=== PATIENT | female | born 1950 | race Two or more races ===

== ENCOUNTER 2019-12-09 07:39 | Emergency (ER) | payer MEDICARE ==
[2019-12-09] MEDS: Nitroglycerin 0.4 MG Tab.SL SL ONE ×2 (07:44→07:54)
[2019-12-09] MEDS: Aspirin 81 MG Tab.Chew PO ONE (07:53)
[2019-12-09] MEDS: Sodium Chloride 0.9% 1,000 ML IV SCH (08:00)
[2019-12-09] MEDS: LORazepam 2 MG/ML SDV IVPUSH ONE (08:02)
--- NOTE | 2019-12-09 08:40 | EDM.PDOC ---
ED HPI GENERAL MEDICAL PROBLEM - General Chief Complaint: Chest Pain Stated Complaint: CHEST PAIN Time Seen by Provider: 12/09/19 07:45 Source of Information: Reports: Patient History Limitations: Reports: No Limitations - History of Present Illness INITIAL COMMENTS - FREE TEXT/NARRATIVE: This patient presents to the ED for evaluation of chest pain. She states that she was sitting in her chair watching the news this morning at 0630 when she developed a sharp pain in her back and chest. She states the pain is the worst that she has had and has not changed in intensity. On arrival she rates the pain at 10/10 and continues primary in her left anterior chest and some in her back. It does not radiate up her neck or down her arms. She felt a bit short of breath but denies any nausea, vomiting, or diarrhea. She denies recent illness including fever, cough, sore throat. She does take HCTZ for "swelling in my ankles" but denies any health problems. Patient is a heavy smoker at 1.5 packs per day. Onset: Today, Sudden Onset Date: 12/09/19 Onset Time: 06:30 Duration: Heavy Location: Reports: Chest Quality: Reports: Stabbing Severity: Severe Improves with: Reports: None Worsens with: Reports: None Associated Symptoms: Reports: No Other Symptoms - Related Data Allergies Allergy/AdvReac Type Severity Reaction Status Date / Time No Known Allergies Allergy Verified 12/09/19 08:30 Home Meds: Home Meds Hydrochlorothiazide 25 mg PO DAILY 10/20/14 [History] Past Medical History Musculoskeletal History: Reports: Arthritis - Past Surgical History Musculoskeletal Surgical History: Reports: Shoulder Surgery Other Musculoskeletal Surgeries/Procedures:: Right RTC repair 11/2016 ED ROS GENERAL - Review of Systems Review Of Systems: See Below Constitutional: Denies: Fever, Malaise, Weakness, Fatigue HEENT: Denies: Ear Pain, Eye Pain, Throat Pain Respiratory: Reports: Shortness of Breath. Denies: Cough, Sputum Cardiovascular: Reports: Chest Pain, Blood Pressure Problem, Dyspnea on Exertion. Denies: Edema, Palpitations GI/Abdominal: Denies: Abdominal Pain, Diarrhea, Nausea, Vomiting Musculoskeletal: Reports: No Symptoms Skin: Reports: No Symptoms Neurological: Reports: No Symptoms ED EXAM, GENERAL - Physical Exam Exam: See Below Exam Limited By: No Limitations General Appearance: Alert, WD/WN, Anxious, Moderate Distress Eye Exam: Bilateral Eye: PERRL Ears: Normal External Exam Nose: Normal Inspection Throat/Mouth: Normal Inspection Head: Atraumatic, Normocephalic Neck: Normal Inspection, Supple, Non-Tender, Full Range of Motion Respiratory/Chest: No Respiratory Distress, Lungs Clear, Normal Breath Sounds Cardiovascular: Normal Peripheral Pulses, Regular Rate, Rhythm Extremities: Normal Inspection Neurological: Alert, Oriented Course - Vital Signs Last Recorded V/S: Last Vital Signs Temp 36.9 C 12/09/19 07:43 Pulse 50 L 12/09/19 10:42 Resp 20 12/09/19 10:42 BP 129/60 12/09/19 10:42 Pulse Ox 94 L 12/09/19 08:17 - Orders/Labs/Meds Orders: Active Orders 24 hr Category Date Time Status EKG Documentation Completion [RC] ASDIRECTED Care 12/09/19 07:54 Active EKG Documentation Completion [RC] ASDIRECTED Care 12/09/19 10:27 Active Chest w Cont [CT] Stat Exams 12/09/19 08:23 Taken Iodixanol [Visipaque 320] Med 12/09/19 08:44 Active 100 ml IV . DIRECTED PRN Sodium Chloride 0.9% [Normal Saline] Med 12/09/19 08:45 Active 50 ml FLUSH ONETIME Sodium Chloride 0.9% [Normal Saline] 1,000 ml Med 12/09/19 08:10 Active IV ASDIRECTED Medication Orders Sodium Chloride (Normal Saline) 1,000 mls @ 0 mls/hr IV ASDIRECTED ALLEN Last Admin: 12/09/19 08:00 Dose: 30 mls/hr Iodixanol (Visipaque 320) 100 ml IV . DIRECTED PRN PRN Reason: RADIOLOGY EXAM Stop: 12/10/19 08:45 Sodium Chloride (Normal Saline) 50 ml FLUSH ONETIME [facility] Labs: Laboratory Tests 12/09/19 12/09/19 12/09/19 Range/Units 07:54 07:54 10:45 WBC 7.1 (4.0-11.0) K/uL RBC 4.71 (3.80-5.80) M/uL Hgb 13.2 (11.5-16.5) g/dL Hct 40.9 (37.0-47.0) % MCV 87 (76-96) fL MCH 28.0 (27.0-32.0) pg MCHC 32.3 (31.0-35.0) g/dL RDW 15.8 (11.0-16.0) % Plt Count 250 (150-500) K/uL MPV 9.2 (6.0-10.0) fL Neut % (Auto) 55.6 (45.0-70.0) % Lymph % (Auto) 30.1 (20.0-40.0) % [place] % (Auto) 12.6 H (3.0-10.0) % Eos % (Auto) 1.4 (1.0-5.0) % Baso % (Auto) 0.3 (0.0-0.5) % Neut # (Auto) 3.93 (2.00-7.50) K/uL Lymph # (Auto) 2.13 (1.50-4.00) K/uL [place] # (Auto) 0.89 H (0.20-0.80) K/uL Eos # (Auto) 0.10 (0.04-0.40) K/uL Baso # (Auto) 0.02 (0.02-0.10) K/uL Sodium 139 (136-145) mmol/L Potassium 3.5 (3.5-5.1) mmol/L Chloride 101 (98-107) mmol/L Carbon Dioxide 27.8 (21.0-32.0) mmol/L Anion Gap 13.7 (5.0-15.0) mmol/L BUN 23 (8-26) mg/dL Creatinine 0.78 (0.55-1.02) mg/dL Est Cr Clr Drug Dosing TNP Estimated GFR (MDRD) > 60 (>60) MLS/MIN BUN/Creatinine Ratio 29.5 H (6-25) Glucose 84 (74-100) mg/dL Calcium 9.1 (8.5-10.1) mg/dL Troponin I < 0.017 < 0.017 (0.000-0.060) ng/mL Meds: Medications Generic Name Dose Route Start Last Admin Trade Name Freq PRN Reason Stop Dose Admin Sodium Chloride 1,000 mls @ 0 mls/hr 12/09/19 08:10 12/09/19 08:00 Normal Saline IV 30 mls/hr ASDIRECTED ALLEN Administration KVO Iodixanol 100 ml 12/09/19 08:44 Visipaque 320 IV 12/10/19 08:45 . DIRECTED PRN RADIOLOGY EXAM Sodium Chloride 50 ml 12/09/19 08:45 Normal Saline FLUSH ONETIME ALLEN Discontinued Medications Generic Name Dose Route Start Last Admin Trade Name Jenni PRN Reason Stop Dose Admin Aspirin 324 mg 12/09/19 07:56 12/09/19 07:53 Aspirin PO 12/09/19 07:57 324 mg ONETIME ONE Administration Lorazepam 1 mg 12/09/19 07:55 12/09/19 08:02 Ativan IVPUSH 12/09/19 07:56 1 mg ONETIME ONE Administration Nitroglycerin 0.4 mg 12/09/19 07:44 12/09/19 07:44 Nitrostat SL 12/09/19 07:45 0.4 mg ONETIME ONE Administration Nitroglycerin 0.4 mg 12/09/19 07:56 12/09/19 07:54 Nitrostat SL 12/09/19 07:57 0.4 mg ONETIME ONE Administration - Re-Assessments/Exams Free Text/Narrative Re-Assessment/Exam: 12/09/19 13:13 This patient presents to the ED for evaluation of chest pain. Initial laboratory and imaging tests have come back normal without progression of symptoms or other new concerning symptoms. There is no clinical, laboratory, or radiographic evidence of pulmonary embolism, aortic dissection, pneumonia, pneumothorax or cardiac ischemia. Other etiologies of chest pain could include chest wall source, esophageal spasm or GI source, pleuritis, referred pain, etc. I have no suspicion of angina at this point and would not admit at this time. She was completely pain free after interventions in the ED and repeat troponin and EKG were negative. I will set the patient up for an outpatient stress echocardiogram as soon as possible. She was instructed to return immediately to the ED should the pain recur; she was also reminded to use 911 as needed. The patient agrees with the plan and all questions were answered. Departure - Departure Time of Disposition: 12:00 Disposition: Home, Self-Care 01 Condition: Good Clinical Impression: Chest pain Instructions: Nonspecific Chest Pain, Adult Referrals: PCP,None [Primary Care Provider] - Forms: ED Department Discharge Sepsis Event Note - Focused Exam Vital Signs: Vital Signs Temp Pulse Resp BP BP Pulse Ox 12/09/19 10:42 50 L 20 129/60 12/09/19 08:17 72 18 150/69 H 94 L 12/09/19 08:05 60 20 144/62 H 97 12/09/19 07:58 63 20 151/74 H 97 12/09/19 07:54 144/116 H 12/09/19 07:51 93 20 144/116 H 97 12/09/19 07:44 194/95 H 12/09/19 07:43 36.9 C 86 20 194/95 H 99 12/09/19 07:40 36.1 C 84 20 194/95 H 100 Date Exam was Performed: 12/09/19 Time Exam was Performed: 13:13 - My Orders Last 24 Hours: My Active Orders 12/09/19 07:54 EKG Documentation Completion [RC] ASDIRECTED 12/09/19 08:10 Sodium Chloride 0.9% [Normal Saline] 1,000 ml IV ASDIRECTED 12/09/19 08:23 Chest w Cont [CT] Stat 12/09/19 08:44 Iodixanol [Visipaque 320] 100 ml IV . DIRECTED PRN 12/09/19 08:45 Sodium Chloride 0.9% [Normal Saline] 50 ml FLUSH ONETIME 12/09/19 10:27 EKG Documentation Completion [RC] ASDIRECTED - Assessment/Plan Last 24 Hours: My Active Orders 12/09/19 07:54 EKG Documentation Completion [RC] ASDIRECTED 12/09/19 08:10 Sodium Chloride 0.9% [Normal Saline] 1,000 ml IV ASDIRECTED 12/09/19 08:23 Chest w Cont [CT] Stat 12/09/19 08:44 Iodixanol [Visipaque 320] 100 ml IV . DIRECTED PRN 12/09/19 08:45 Sodium Chloride 0.9% [Normal Saline] 50 ml FLUSH ONETIME 12/09/19 10:27 EKG Documentation Completion [RC] ASDIRECTED
[2019-12-09] MEDS ORDERED: Iodixanol 652 MG/ML 100 ML Bottle IV PRN (08:44)
[2019-12-09] MEDS ORDERED: Sodium Chloride 0.9% 50 ML SDV FLUSH SCH (08:45)
[2019-12-09 10:43] VITALS: BP 129/60; PULSE 50
--- NOTE | 2019-12-11 10:39 | CT ---
DATE OF SERVICE: 12/09/19 CLINICAL DATA: chest and back pain ENHANCED CHEST CT: Multislice acquisition through the chest with IV contrast was performed. No priors. No evidence of PE. No pneumothorax. No pleural effusion. No aortic aneurysm or dissection. There are mild emphysematous changes throughout both lungs. There are linear densities in both lung bases consistent with linear atelectasis or fibrosis. There is a 4 mm calcified nodule in the right lung base consistent with a calcified granuloma from prior granulomatous disease. The lungs are otherwise clear. The heart size is normal. No significant pericardial effusion. No hilar or mediastinal adenopathy. There is a 1.9 cm sharply transcribed fluid density lesion in the left lobe of the liver consistent with a benign hepatic cyst. There is another sharply transcribed fluid density lesion in the right lobe of the liver adjacent to the gallbladder fossa consistent with benign cyst. There is some reflux of the contrast into the right hepatic vein suggesting the possibility of right heart failure. There is gas within the cervical esophagus. This is most likely related to GE reflux. There is a small sclerotic focus within the left 10th rib laterally. This is probably a bone island. No other significant findings. [id number] [facility]
== END 2019-12-09 12:00 | disposition home or self-care (01) ==
LOC: LB.ED 07:39
DX: R07.9 Chest pain, unspecified (principal); R07.89 Other chest pain; Z79.899 Other long term (current) drug therapy
CPT/HCPCS: 36415; 71260; 80048; 84484; 85025; 93005; 99284; A9270-GY; J2060; J7030

== ENCOUNTER 2022-05-16 10:36 | Observation (INO) | payer MEDICARE ==
[2022-05-16 11:41] LABS: ESTIMATED GFR 46 mL/min (>60)
[2022-05-16] MEDS ORDERED: Haloperidol Lactate 5 MG/ML SDV IVPUSH ONE ×2 (11:53→12:39)
[2022-05-16] MEDS ORDERED: Potassium Chloride Riders 10 MEQ in Premix Bag 1 BAG IV ONE ×6 (11:55→22:23)
[2022-05-16] MEDS ORDERED: Haloperidol Lactate 5 MG/ML SDV ONE (12:04)
[2022-05-16] MEDS ORDERED: Potassium Chloride Riders 50 ML ONE ×3 (12:25→16:53)
[2022-05-16] MEDS ORDERED: Sodium Chloride 0.9% 1,000 ML IV SCH (12:45)
[2022-05-17] MEDS ORDERED: Acetaminophen 325 MG Tab PO ONE (05:28)
[2022-05-17] MEDS ORDERED: Acetaminophen 325 MG Tab ONE (05:30)
[2022-05-17] MEDS ORDERED: Non-Formulary Medication 1 Each (Cyanocobalamin (Vitamin B-12) [Vitamin B-12] 1,000 MCG Ta SL SCH (08:00)
[2022-05-17] MEDS: Montelukast 10 MG Tab PO SCH (08:21)
[2022-05-17] MEDS: Calcium Carbonate/Vitamin D3 1500 MG-400 Units Tab PO SCH (08:22)
[2022-05-17] MEDS: Hydrochlorothiazide 25 MG Tab PO SCH (08:22)
[2022-05-17] MEDS ORDERED: Potassium Chloride Riders 10 MEQ in Premix Bag 1 BAG IV ONE ×6 (08:46→14:59)
[2022-05-17] MEDS: Enoxaparin 30 MG/0.3 ML Syringe SUBCUT SCH (10:08)
[2022-05-17] MEDS: Multivitamins with Iron/Calcium/Folic Acid/Minerals Tab PO SCH (10:09)
[2022-05-17] MEDS ORDERED: Haloperidol Lactate 5 MG/ML SDV IVPUSH ONE ×3 (12:16→14:59)
[2022-05-17] MEDS ORDERED: LORazepam 2 MG/ML SDV ONE (17:48)
[2022-05-17] MEDS ORDERED: LORazepam 2 MG/ML SDV IVPUSH ONE (17:56)
[2022-05-18] MEDS: Multivitamins with Iron/Calcium/Folic Acid/Minerals Tab PO SCH (08:07)
[2022-05-18] MEDS: Hydrochlorothiazide 25 MG Tab PO SCH (08:07)
[2022-05-18] MEDS: Montelukast 10 MG Tab PO SCH (08:07)
[2022-05-18] MEDS: Calcium Carbonate/Vitamin D3 1500 MG-400 Units Tab PO SCH (08:07)
[2022-05-18] MEDS: Haloperidol Lactate 5 MG/ML SDV IVPUSH ONE ×2 (08:50→11:07)
[2022-05-18] MEDS ORDERED: Haloperidol Lactate 5 MG/ML SDV IVPUSH ONE (08:52)
[2022-05-18] MEDS: Haloperidol Lactate 5 MG/ML SDV ONE ×2 (08:53→09:10)
[2022-05-18] MEDS: LORazepam 2 MG/ML SDV ONE ×2 (10:40→11:53)
[2022-05-18] MEDS ORDERED: LORazepam 2 MG/ML SDV IVPUSH ONE ×2 (10:47→10:54)
[2022-05-18] MEDS: Enoxaparin 30 MG/0.3 ML Syringe SUBCUT SCH (10:58)
[2022-05-18] MEDS: QUEtiapine 25 MG Tab PO SCH ×3 (11:53→20:21)
[2022-05-18] MEDS ORDERED: QUEtiapine 25 MG Tab ONE (12:05)
[2022-05-19] MEDS: Hydrochlorothiazide 25 MG Tab PO SCH (08:21)
[2022-05-19] MEDS: Multivitamins with Iron/Calcium/Folic Acid/Minerals Tab PO SCH (08:22)
[2022-05-19] MEDS: Calcium Carbonate/Vitamin D3 1500 MG-400 Units Tab PO SCH (08:22)
[2022-05-19] MEDS: QUEtiapine 25 MG Tab PO SCH ×2 (08:22→20:33)
[2022-05-19] MEDS: Montelukast 10 MG Tab PO SCH (08:22)
[2022-05-19] MEDS: Enoxaparin 30 MG/0.3 ML Syringe SUBCUT SCH (10:16)
[2022-05-19] MEDS ORDERED: LORazepam 2 MG/ML SDV ONE (13:19)
[2022-05-20] MEDS: QUEtiapine 25 MG Tab PO SCH ×2 (07:05→19:57)
[2022-05-20] MEDS: Hydrochlorothiazide 25 MG Tab PO SCH (07:05)
[2022-05-20] MEDS: Multivitamins with Iron/Calcium/Folic Acid/Minerals Tab PO SCH (07:06)
[2022-05-20] MEDS: Calcium Carbonate/Vitamin D3 1500 MG-400 Units Tab PO SCH (07:06)
[2022-05-20] MEDS: Montelukast 10 MG Tab PO SCH (07:06)
[2022-05-20] MEDS ORDERED: LORazepam 2 MG/ML SDV IVPUSH ONE ×2 (10:15→11:23)
[2022-05-20] MEDS ORDERED: QUEtiapine 25 MG Tab PO ONE (11:30)
[2022-05-20] MEDS: Enoxaparin 30 MG/0.3 ML Syringe SUBCUT SCH (11:44)
[2022-05-21] MEDS: LORazepam 2 MG/ML SDV IVPUSH PRN (05:25)
[2022-05-21] MEDS ORDERED: LORazepam 2 MG/ML SDV IVPUSH ONE (05:55)
[2022-05-21] MEDS: Calcium Carbonate/Vitamin D3 1500 MG-400 Units Tab PO SCH (08:13)
[2022-05-21] MEDS: Hydrochlorothiazide 25 MG Tab PO SCH (08:13)
[2022-05-21] MEDS: Montelukast 10 MG Tab PO SCH (08:13)
[2022-05-21] MEDS: Multivitamins with Iron/Calcium/Folic Acid/Minerals Tab PO SCH (08:13)
[2022-05-21] MEDS: QUEtiapine 25 MG Tab PO SCH ×2 (08:14→19:36)
[2022-05-21] MEDS: Enoxaparin 30 MG/0.3 ML Syringe SUBCUT SCH (11:14)
[2022-05-22] MEDS: Multivitamins with Iron/Calcium/Folic Acid/Minerals Tab PO SCH (08:21)
[2022-05-22] MEDS: Montelukast 10 MG Tab PO SCH (08:21)
[2022-05-22] MEDS: Calcium Carbonate/Vitamin D3 1500 MG-400 Units Tab PO SCH (08:22)
[2022-05-22] MEDS: Hydrochlorothiazide 25 MG Tab PO SCH (08:22)
[2022-05-22] MEDS: QUEtiapine 25 MG Tab PO SCH ×2 (08:22→19:20)
[2022-05-22] MEDS ORDERED: LORazepam 2 MG/ML SDV ONE (08:44)
[2022-05-22] MEDS: LORazepam 2 MG/ML SDV IVPUSH PRN (08:59)
[2022-05-22] MEDS: Enoxaparin 30 MG/0.3 ML Syringe SUBCUT SCH (09:44)
[2022-05-22] MEDS ORDERED: QUEtiapine 25 MG Tab ONE (10:23)
[2022-05-22] MEDS: Diazepam 10 MG Tab PO SCH (10:28)
[2022-05-22] MEDS ORDERED: QUEtiapine 25 MG Tab PO ONE (10:32)
[2022-05-23] MEDS: Montelukast 10 MG Tab PO SCH (08:03)
[2022-05-23] MEDS: QUEtiapine 25 MG Tab PO SCH ×2 (08:03→20:51)
[2022-05-23] MEDS: Multivitamins with Iron/Calcium/Folic Acid/Minerals Tab PO SCH (08:03)
[2022-05-23] MEDS: Calcium Carbonate/Vitamin D3 1500 MG-400 Units Tab PO SCH (08:03)
[2022-05-23] MEDS: Hydrochlorothiazide 25 MG Tab PO SCH (08:03)
[2022-05-23] MEDS: Diazepam 10 MG Tab PO SCH (08:04)
[2022-05-23] MEDS: Enoxaparin 30 MG/0.3 ML Syringe SUBCUT SCH (10:30)
[2022-05-23] MEDS ORDERED: Ketamine 200 MG/20 ML MDV IV ONE (11:08)
[2022-05-23] MEDS ORDERED: KETAMINE IV ONE (12:00)
[2022-05-23] MEDS ORDERED: SODIUM CHLORIDE 0.9% IV ONE ×2 (12:00→18:30)
[2022-05-23] MEDS ORDERED: Haloperidol Lactate 5 MG/ML SDV IV ONE (18:03)
[2022-05-23] MEDS ORDERED: HALOPERIDOL LACTATE IV ONE (18:30)
[2022-05-24] MEDS ORDERED: LORazepam 2 MG/ML SDV IVPUSH ONE (00:07)
[2022-05-24] MEDS ORDERED: LORazepam 2 MG/ML SDV ONE (00:10)
[2022-05-24] MEDS: Multivitamins with Iron/Calcium/Folic Acid/Minerals Tab PO SCH (07:47)
[2022-05-24] MEDS: Hydrochlorothiazide 25 MG Tab PO SCH (07:47)
[2022-05-24] MEDS: Montelukast 10 MG Tab PO SCH (07:47)
[2022-05-24] MEDS: QUEtiapine 25 MG Tab PO SCH ×2 (07:47→20:13)
[2022-05-24] MEDS: Calcium Carbonate/Vitamin D3 1500 MG-400 Units Tab PO SCH (07:47)
[2022-05-24] MEDS ORDERED: Diazepam 5 MG Tab PO SCH (08:00)
[2022-05-24] MEDS ORDERED: Haloperidol 1 MG Tab ONE (09:44)
[2022-05-24] MEDS ORDERED: Haloperidol 0.5 MG Tab PO SCH (20:00)
[2022-05-24] MEDS: Diazepam 5 MG Tab PO SCH (20:12)
[2022-05-25] MEDS: Acetaminophen 325 MG Tab PO PRN (05:57)
[2022-05-25] MEDS: QUEtiapine 25 MG Tab PO SCH ×2 (07:52→19:23)
[2022-05-25] MEDS: Hydrochlorothiazide 25 MG Tab PO SCH (07:53)
[2022-05-25] MEDS: Calcium Carbonate/Vitamin D3 1500 MG-400 Units Tab PO SCH (07:53)
[2022-05-25] MEDS: Diazepam 5 MG Tab PO SCH ×2 (07:53→19:22)
[2022-05-25] MEDS: Montelukast 10 MG Tab PO SCH (07:53)
[2022-05-25] MEDS: Multivitamins with Iron/Calcium/Folic Acid/Minerals Tab PO SCH (07:53)
[2022-05-25] MEDS ORDERED: QUEtiapine 25 MG Tab ONE (19:13)
[2022-05-25] MEDS ORDERED: Melatonin 10 MG Cap PO SCH (20:00)
[2022-05-26] MEDS: Acetaminophen 325 MG Tab PO PRN (06:48)
[2022-05-26] MEDS: Multivitamins with Iron/Calcium/Folic Acid/Minerals Tab PO SCH (07:56)
[2022-05-26] MEDS: Calcium Carbonate/Vitamin D3 1500 MG-400 Units Tab PO SCH (07:56)
[2022-05-26] MEDS: QUEtiapine 25 MG Tab PO SCH ×2 (07:57→20:35)
[2022-05-26] MEDS: Hydrochlorothiazide 25 MG Tab PO SCH (07:59)
[2022-05-26] MEDS: Diazepam 5 MG Tab PO SCH ×2 (08:00→20:35)
[2022-05-26] MEDS: Montelukast 10 MG Tab PO SCH (08:01)
[2022-05-27] MEDS: Acetaminophen 325 MG Tab PO PRN ×2 (02:49→17:02)
[2022-05-27] MEDS: Multivitamins with Iron/Calcium/Folic Acid/Minerals Tab PO SCH (07:59)
[2022-05-27] MEDS: Calcium Carbonate/Vitamin D3 1500 MG-400 Units Tab PO SCH (07:59)
[2022-05-27] MEDS: Diazepam 5 MG Tab PO SCH (07:59)
[2022-05-27] MEDS: Montelukast 10 MG Tab PO SCH (07:59)
[2022-05-27] MEDS: QUEtiapine 25 MG Tab PO SCH ×2 (08:00→19:43)
[2022-05-27] MEDS: Hydrochlorothiazide 25 MG Tab PO SCH (08:00)
[2022-05-27] MEDS ORDERED: Diazepam 5 MG Tab PO PRN (08:44)
[2022-05-27] MEDS: Ibuprofen 400 MG Tab PO PRN (12:37)
[2022-05-27] MEDS ORDERED: QUEtiapine 25 MG Tab ONE (19:46)
[2022-05-28] MEDS: QUEtiapine 25 MG Tab PO SCH ×2 (07:39→19:22)
[2022-05-28] MEDS: Calcium Carbonate/Vitamin D3 1500 MG-400 Units Tab PO SCH (07:39)
[2022-05-28] MEDS: Montelukast 10 MG Tab PO SCH (07:39)
[2022-05-28] MEDS: Multivitamins with Iron/Calcium/Folic Acid/Minerals Tab PO SCH (07:39)
[2022-05-28] MEDS: Hydrochlorothiazide 25 MG Tab PO SCH (07:39)
[2022-05-28] MEDS: Ibuprofen 400 MG Tab PO PRN (10:19)
[2022-05-29] MEDS: Hydrochlorothiazide 25 MG Tab PO SCH (07:17)
[2022-05-29] MEDS: Calcium Carbonate/Vitamin D3 1500 MG-400 Units Tab PO SCH (07:17)
[2022-05-29] MEDS: Multivitamins with Iron/Calcium/Folic Acid/Minerals Tab PO SCH (07:17)
[2022-05-29] MEDS: QUEtiapine 25 MG Tab PO SCH (07:17)
[2022-05-29] MEDS: Montelukast 10 MG Tab PO SCH (07:18)
[2022-05-29 12:16] VITALS: BP 162/77; PULSE 71
== END 2022-05-29 12:05 | disposition home or self-care (01) ==
LOC: LB.ED 10:36 → UNDOADMOB 12:41 → INTOOBSV 12:41 → LB.MS 12:41
PROVIDERS: ADMIT Nurse Practitioner Family; ATTEND Nurse Practitioner Family
DX: F03.90 Unspecified dementia, unspecified severity, without behavioral disturbance, psychotic disturbance, mood disturbance, and anxiety (principal); R44.2 Other hallucinations; E87.6 Hypokalemia; I10 Essential (primary) hypertension; Z98.890 Other specified postprocedural states; Z79.899 Other long term (current) drug therapy; Z20.822 Contact with and (suspected) exposure to COVID-19
CPT/HCPCS: 36415; 80048; 80053; 81001; 81003; 82306; 83735; 84439; 84443; 85025; 85027; 93005; 96365; 96375; 97165-GO; 97530-GO; 99285-25; A9270-GY; J1630; J1650; J2060; J3480; J7030; J7050; U0002

== ENCOUNTER 2024-04-25 07:44 | Emergency (ER) | payer MEDICARE ==
[2024-04-25] MEDS: Sodium Chloride 0.9% 1,000 ML IV SCH (08:47)
[2024-04-25] MEDS: Morphine 4 MG/ML VIAL IVPUSH ONE (08:47)
[2024-04-25 09:11] LABS: HEMATOCRIT 32.7 % (37.0-47.0); HEMOGLOBIN 10.3 g/dL (11.5-16.5); MEAN CORPUSCULAR HEMOGLOBIN 23.1 pg (27.0-32.0); MEAN CORPUSCULAR HGB CONC 31.5 g/dL (31.0-35.0); MEAN PLATELET VOLUME 9.3 fL (6.0-10.0); RED BLOOD CELL COUNT 4.46 M/uL (3.80-5.80); WHITE BLOOD CELL COUNT,WBC 12.8 K/uL (4.0-11.0)
[2024-04-25 09:16] VITALS: PULSE 79
[2024-04-25] MEDS: fentaNYL 100 MCG/2 ML SDV IVPUSH SCH (09:19)
[2024-04-25 09:37] LABS: CALCIUM 8.1 mg/dL (8.5-10.1); CARBON DIOXIDE,CO2 24.1 mmol/L (21.0-32.0); CREATININE 0.74 mg/dL (0.55-1.02); EST CRCL DRUG DOSING (CG) 47.76 mL/min; POTASSIUM,K 3.1 mmol/L (3.5-5.1); TROPONIN I HIGH SENSITIVITY 6.6 pg/ml (<=60.4)
[2024-04-25] MEDS: fentaNYL 100 MCG/2 ML SDV ONE (10:10)
[2024-04-25] MEDS: Cyclobenzaprine 10 MG Tab PO ONE (10:14)
[2024-04-25] MEDS: Acetaminophen/HYDROcodone 325-10 MG Tab PO ONE (11:24)
[2024-04-25 11:36] VITALS: BP 121/58
[2024-04-26] MEDS: Morphine 4 MG/ML VIAL ONE (10:00)
[2024-04-26] MEDS: Cyclobenzaprine 10 MG Tab ONE (10:00)
[2024-04-26] MEDS: Acetaminophen/HYDROcodone 325-10 MG Tab ONE (10:00)
== END 2024-04-25 10:18 ==
LOC: LB.ED 07:44
DX: S42.291A Other displaced fracture of upper end of right humerus, initial encounter for closed fracture (principal); I10 Essential (primary) hypertension; Z79.899 Other long term (current) drug therapy; W18.30XA Fall on same level, unspecified, initial encounter
CPT/HCPCS: 36415; 70450; 73020; 80048; 84484; 85027; 93005; 96361; 96374; 96375; 99285; A9270; J2270; J3010; J7030

== ENCOUNTER 2024-05-31 16:24 | Inpatient (IN) | payer MEDICARE ==
[2024-05-31] MEDS: Sodium Chloride 0.9% 1,000 ML IV ONE ×2 (17:44→21:07)
[2024-05-31 17:46] LABS: BASOPHILS ABSOLUTE AUTO 0.06 K/uL (0.02-0.10); BASOPHILS PERCENT AUTO 0.3 % (0.0-0.5); HEMATOCRIT 38.9 % (37.0-47.0); HEMOGLOBIN 12.2 g/dL (11.5-16.5); LYMPHOCYTES ABSOLUTE AUTO 1.98 K/uL (1.50-4.00); LYMPHOCYTES PERCENT AUTO 10.7 % (20.0-40.0); MEAN CORPUSCULAR HEMOGLOBIN 23.8 pg (27.0-32.0); MEAN CORPUSCULAR HGB CONC 31.4 g/dL (31.0-35.0); MEAN CORPUSCULAR VOLUME 76 fL (76-96); MEAN PLATELET VOLUME 8.9 fL (6.0-10.0); MONOCYTES ABSOLUTE AUTO 1.26 K/uL (0.20-0.80); MONOCYTES PERCENT AUTO 6.8 % (3.0-10.0); NEUTROPHILS ABSOLUTE AUTO 15.25 K/uL (2.00-7.50); NEUTROPHILS PERCENT AUTO 82.2 % (45.0-70.0); PLATELET COUNT,PLT 582 K/uL (150-500); RED BLOOD CELL COUNT 5.12 M/uL (3.80-5.80); RED CELL DISTRIBUTION WIDTH 21.7 % (11.0-16.0); WHITE BLOOD CELL COUNT,WBC 18.6 K/uL (4.0-11.0)
[2024-05-31 18:02] LABS: PTT,PARTIAL THROMBOPLSTIN TIME 26.2 SECONDS (24.4-33.2)
[2024-05-31 18:05] LABS: A/G RATIO 0.4 (0.8-2.0); ALBUMIN 1.8 g/dL (3.4-5.0); ANION GAP 15.3 mmol/L (5.0-15.0); BILIRUBIN TOTAL 0.7 mg/dL (0.0-1.0); BUN/CREATININE RATIO 25.8 (6-25); CALCIUM 8.1 mg/dL (8.5-10.1); CARBON DIOXIDE,CO2 26.3 mmol/L (21.0-32.0); CREATININE 0.93 mg/dL (0.55-1.02); EST CRCL DRUG DOSING (CG) 32.64 mL/min; POTASSIUM,K 3.6 mmol/L (3.5-5.1); PROTEIN TOTAL,TP 6.4 g/dL (6.4-8.2)
[2024-05-31 18:08] LABS: PROTHROMBIN TIME 10.4 sec (9.0-11.5)
[2024-05-31 18:17] LABS: C-REACTIVE PROTEIN 128.8 mg/L (<5.0)
[2024-05-31 19:45] LABS: APPEARANCE,URINE CLEAR (CLEAR); BILIRUBIN,URINE NEGATIVE (NEGATIVE); COLOR,URINE YELLOW; GLUCOSE,URINE NEGATIVE (NEGATIVE); KETONES,URINE NEGATIVE (NEGATIVE); LEUKOCYTE ESTERASE,URINE NEGATIVE (NEGATIVE); NITRITE,URINE NEGATIVE (NEGATIVE); OCCULT BLOOD,URINE SMALL (NEGATIVE); PH,URINE 5.5 (5.0-8.0); PROTEIN,URINE NEGATIVE (NEGATIVE); RBC,URINE 0-5 /HPF; SQUAMOUS EPITHELIAL CELLS,UR OCCASIONAL /HPF; UROBILINOGEN,URINE 0.2 E.U./dL (0.2-1.0); WBC,URINE NOT SEEN /HPF
[2024-05-31] MEDS ORDERED: Zinc Oxide 20% Oint 56.7 GM Tube TOP PRN (20:40)
[2024-05-31] MEDS ORDERED: traMADol 50 MG Tab PO PRN (20:40)
[2024-05-31] MEDS ORDERED: Acetaminophen 325 MG Tab PO PRN ×2 (20:40→20:43)
[2024-05-31] MEDS ORDERED: Furosemide 40 MG Tab PO PRN (20:43)
[2024-05-31] MEDS ORDERED: Docusate Sodium 100 MG Cap PO PRN (20:43)
[2024-05-31] MEDS ORDERED: Alendronate 70 MG Tab PO SCH (20:45)
[2024-05-31] MEDS: Piperacillin/Tazobactam 3.375 GM in Sodium Chloride 0.9% 100 ML IV SCH (21:14)
[2024-05-31] MEDS: Sodium Chloride 0.9% 1,000 ML IV SCH ×2 (22:15→23:17)
[2024-05-31] MEDS: Budesonide 0.5 MG/2 ML Neb Susp NEB SCH (22:45)
[2024-06-01 07:59] LABS: BASOPHILS ABSOLUTE AUTO 0.03 K/uL (0.02-0.10); BASOPHILS PERCENT AUTO 0.2 % (0.0-0.5); EOSINOPHILS ABSOLUTE AUTO 0.01 K/uL (0.04-0.40); EOSINOPHILS PERCENT AUTO 0.1 % (1.0-5.0); HEMATOCRIT 32.8 % (37.0-47.0); LYMPHOCYTES ABSOLUTE AUTO 1.39 K/uL (1.50-4.00); LYMPHOCYTES PERCENT AUTO 9.7 % (20.0-40.0); MEAN CORPUSCULAR HEMOGLOBIN 23.6 pg (27.0-32.0); MEAN CORPUSCULAR HGB CONC 30.5 g/dL (31.0-35.0); MEAN CORPUSCULAR VOLUME 78 fL (76-96); MEAN PLATELET VOLUME 8.8 fL (6.0-10.0); MONOCYTES ABSOLUTE AUTO 0.76 K/uL (0.20-0.80); MONOCYTES PERCENT AUTO 5.3 % (3.0-10.0); NEUTROPHILS PERCENT AUTO 84.7 % (45.0-70.0); PLATELET COUNT,PLT 458 K/uL (150-500); RED BLOOD CELL COUNT 4.23 M/uL (3.80-5.80); RED CELL DISTRIBUTION WIDTH 21.5 % (11.0-16.0); WHITE BLOOD CELL COUNT,WBC 14.3 K/uL (4.0-11.0)
[2024-06-01] MEDS ORDERED: Furosemide 20 MG Tab PO SCH (08:00)
[2024-06-01] MEDS ORDERED: Spironolactone 25 MG Tab PO SCH (08:00)
[2024-06-01] MEDS ORDERED: Potassium Chloride 10 MEQ Tab.ER PO SCH (08:00)
[2024-06-01 08:21] LABS: A/G RATIO 0.4 (0.8-2.0); ALBUMIN 1.5 g/dL (3.4-5.0); ANION GAP 11.9 mmol/L (5.0-15.0); BILIRUBIN TOTAL 0.6 mg/dL (0.0-1.0); BUN/CREATININE RATIO 32.8 (6-25); CALCIUM 7.4 mg/dL (8.5-10.1); CREATININE 0.61 mg/dL (0.55-1.02); EST CRCL DRUG DOSING (CG) 49.75 mL/min; PROTEIN TOTAL,TP 5.3 g/dL (6.4-8.2)
[2024-06-01 08:30] LABS: POTASSIUM,K 2.9 mmol/L (3.5-5.1)
[2024-06-01] MEDS: Losartan 25 MG Tab PO SCH (09:31)
[2024-06-01] MEDS: Omeprazole 20 MG Cap.CR PO SCH (09:31)
[2024-06-01] MEDS: Sertraline 25 MG Tab PO SCH (09:32)
[2024-06-01] MEDS: Ferrous Sulfate 325 MG Tab PO SCH (09:32)
[2024-06-01] MEDS: Lactobacillus Acidophilus/Lactobacillus Sporogenes (Probiotic) Tab PO SCH (09:32)
[2024-06-01] MEDS: Enoxaparin 40 MG/0.4 ML Syringe SUBCUT ONE (09:33)
[2024-06-01] MEDS: Potassium Chloride 20 MEQ Tab.ER PO ONE (09:41)
[2024-06-02 08:24] LABS: BASOPHILS ABSOLUTE AUTO 0.03 K/uL (0.02-0.10); BASOPHILS PERCENT AUTO 0.3 % (0.0-0.5); EOSINOPHILS ABSOLUTE AUTO 0.07 K/uL (0.04-0.40); EOSINOPHILS PERCENT AUTO 0.7 % (1.0-5.0); HEMATOCRIT 31.1 % (37.0-47.0); HEMOGLOBIN 9.5 g/dL (11.5-16.5); LYMPHOCYTES ABSOLUTE AUTO 1.61 K/uL (1.50-4.00); LYMPHOCYTES PERCENT AUTO 15.5 % (20.0-40.0); MEAN CORPUSCULAR HEMOGLOBIN 24.2 pg (27.0-32.0); MEAN CORPUSCULAR HGB CONC 30.5 g/dL (31.0-35.0); MEAN CORPUSCULAR VOLUME 79 fL (76-96); MEAN PLATELET VOLUME 8.9 fL (6.0-10.0); MONOCYTES ABSOLUTE AUTO 0.46 K/uL (0.20-0.80); MONOCYTES PERCENT AUTO 4.4 % (3.0-10.0); NEUTROPHILS ABSOLUTE AUTO 8.25 K/uL (2.00-7.50); NEUTROPHILS PERCENT AUTO 79.1 % (45.0-70.0); PLATELET COUNT,PLT 430 K/uL (150-500); RED BLOOD CELL COUNT 3.93 M/uL (3.80-5.80); RED CELL DISTRIBUTION WIDTH 21.1 % (11.0-16.0); WHITE BLOOD CELL COUNT,WBC 10.4 K/uL (4.0-11.0)
[2024-06-02 08:52] LABS: A/G RATIO 0.4 (0.8-2.0); ALBUMIN 1.4 g/dL (3.4-5.0); BILIRUBIN TOTAL 0.6 mg/dL (0.0-1.0); BUN/CREATININE RATIO 21.7 (6-25); CALCIUM 7.7 mg/dL (8.5-10.1); CARBON DIOXIDE,CO2 25.9 mmol/L (21.0-32.0); CREATININE 0.6 mg/dL (0.55-1.02); EST CRCL DRUG DOSING (CG) 50.58 mL/min; PROTEIN TOTAL,TP 5.1 g/dL (6.4-8.2)
[2024-06-02 08:58] LABS: ANION GAP 9.8 mmol/L (5.0-15.0); POTASSIUM,K 2.7 mmol/L (3.5-5.1)
[2024-06-02] MEDS: Ferrous Sulfate 325 MG Tab PO SCH (09:50)
[2024-06-02] MEDS: Potassium Chloride Riders 50 ML IV ONE ×4 (10:13→17:04)
[2024-06-02] MEDS: Sodium Chloride 0.9% 250 ML IV ONE (11:15)
[2024-06-02 13:27] LABS: BUN/CREATININE RATIO 18.6 (6-25); CALCIUM 8.1 mg/dL (8.5-10.1); CARBON DIOXIDE,CO2 23.9 mmol/L (21.0-32.0); CREATININE 0.7 mg/dL (0.55-1.02); EST CRCL DRUG DOSING (CG) 43.35 mL/min
[2024-06-02 13:28] LABS: ANION GAP 12.8 mmol/L (5.0-15.0)
[2024-06-02 13:29] LABS: POTASSIUM,K 2.7 mmol/L (3.5-5.1)
[2024-06-02] MEDS: Menthol/Zinc Oxide Ointment 113 GM Tube TOP ONE (17:12)
[2024-06-02] MEDS: Menthol/Zinc Oxide Ointment 113 GM Tube TOP PRN (19:48)
[2024-06-02] MEDS: Amoxicillin/Clavulanate K 875-125 MG Tab PO SCH (19:48)
[2024-06-03 05:22] VITALS: PULSE 84
[2024-06-03 09:12] LABS: BUN/CREATININE RATIO 21.2 (6-25); CALCIUM 8.2 mg/dL (8.5-10.1); CARBON DIOXIDE,CO2 24.1 mmol/L (21.0-32.0); CREATININE 0.52 mg/dL (0.55-1.02); EST CRCL DRUG DOSING (CG) 58.36 mL/min; POTASSIUM,K 3.1 mmol/L (3.5-5.1)
[2024-06-03] MEDS ORDERED: Sodium Chloride 0.9% 250 ML IV SCH (09:45)
[2024-06-03] MEDS: Potassium Chloride Riders 50 ML IV ONE ×2 (10:15→11:09)
[2024-06-03 10:19] VITALS: BP 149/82
[2024-06-03] MEDS: Lactobacillus Acidophilus/Lactobacillus Sporogenes (Probiotic) Tab PO SCH (11:14)
== END 2024-06-03 13:30 | DRG 178 ==
LOC: LB.ED 16:24 → LB.MS 21:06 → OBSVTOIN 06-02 12:58
PROVIDERS: ADMIT Physician Assistant; ATTEND Physician Assistant
DX: U07.1 COVID-19 (principal); F03.93 Unspecified dementia, unspecified severity, with mood disturbance; F03.94 Unspecified dementia, unspecified severity, with anxiety; R65.10 Systemic inflammatory response syndrome (SIRS) of non-infectious origin without acute organ dysfunction; I10 Essential (primary) hypertension; K21.9 Gastro-esophageal reflux disease without esophagitis; M81.0 Age-related osteoporosis without current pathological fracture; M19.90 Unspecified osteoarthritis, unspecified site; Z66 Do not resuscitate; E86.0 Dehydration; E87.6 Hypokalemia; Z79.899 Other long term (current) drug therapy; Z98.890 Other specified postprocedural states
CPT/HCPCS: 36415 ×3; 71045 ×2; 80053 ×3; 81001; 83605; 83735; 83880; 84145; 84484; 85025 ×3; 85610; 85730; 86140; 87040 ×2; 93005; 94640 ×4; 96360; 96361; 96372; 99285; A9270 ×12; J1650; J2543 ×7; J3480 ×2; J3490 ×7; J7030 ×3; 80048; 96365; 96366; 96368; G0378; J7050